=== PATIENT | female | born 2005 | race Caucasian/White ===

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

== ENCOUNTER 2025-01-08 17:43 | Emergency (ER) | payer BC, SELFPAY ==
--- OUTSIDE RECORDS SUMMARY | 2025-01-08 17:46 | XMS_ITS | Clinical Summary ---
Author Organization [facility] Address [address] [place] [id number] Care Team Providers Care Power Transformer Inspector Name Role Phone Lauren Orellana DO Primary Care Provider [phone] Allergies No known active allergies Medications vit 28/iron fum/folic (multivitamin folic acid 1 mg)Indications:Pr egnancy, unspecified gestational age (HC) Take 1 Tablet by mouth once daily. 90 Tablet 3 5 Active ferrous sulfate 325 mg delayed release tabletIndications : care, first in first trimester (HC) Take 1 Tablet (325 mg) by mouth once daily with a meal. 90 Tablet 3 5 Active vit 28/iron fum/folic (multivitamin folic acid 1 mg)Indications:Pr egnancy, unspecified gestational age (HC) Take 1 Tablet by mouth once daily. 90 Tablet 3 4 025 Discontin ued(Reord er (E-cancel not sent)) albuterol HFA (PRO-AIR; VENTOLIN; PROVENTIL) 90 mcg/actuation inhalerIndication s:Chest congestion INHALE 1 TO 2 PUFFS BY MOUTH EVERY 4 HOURS NEEDED FOR SHORTNESS OF BREATH 8.5 g 4 025 Discontin ued(*Med complete/ Regimen complete/ Level of care change) cholecalciferol (Vitamin D3) (Vitamin D-3) 5,000 unit tab tabletIndications : (infant) Take 1 Tablet (5,000 units) by mouth once daily. 90 Tablet 3 5 025 Discontin ued(*Med complete/ Regimen complete/ Level of care change) norethindrone (Contraceptive) 0.35 mg tabletIndications :Encounter for initial prescription of contraceptive pills Take 1 Tablet (0.35 mg) by mouth once daily. 90 Tablet 3 5 025 Discontin ued(*Med complete/ Regimen complete/ Level of care change) Active Problems Problem Noted Date Diagnosed Date #2 12/26/2024 Overview (12/30/2024): Estimated Date of Delivery: 07/24/25 ALICIA based on 5w US Closely spaced : C/S 06/12/24 GBS: 28wk labs: Last Tdap: 03/18/24 Last Flu vaccine: 12/25/24 OB Labs: ABORH Date Value Ref Range Status 12/25/2024 O Rh Positive Final ANTIBODY SCREEN Date Value Ref Range Status 12/25/2024 Negative Negative Final TREPONEMA PALLIDUM Date Value Ref Range Status 12/25/2024 Non-Reactive Non-Reactive Final RUBELLA AB (IGG), IMMUNE STATUS Date Value Ref Range Status 12/25/2024 1.72 Index Final Comment: Index Interpretation ----- <0.90 Not consistent with immunity 0.90-0.99 Equivocal > or = 1.00 Consistent with immunity HEPATITIS B SURFACE ANTIGEN Date Value Ref Range Status 12/25/2024 NON-REACTIVE NON-REACTIVE Final HIV AG/AB, 4TH GEN Date Value Ref Range Status 12/25/2024 NON-REACTIVE NON-REACTIVE Final HEMOGLOBIN Date Value Ref Range Status 12/25/2024 12.3 11.7 - 15.5 g/dL Final CHLAMYDIA PROBE Date Value Ref Range Status 12/25/2024 Negative Final N GONORRHOEAE PROBE Date Value Ref Range Status 12/25/2024 Negative Final No Known Allergies OB History Para Term AB Living 3 1 1 0 1 1 SAB IAB Ectopic Multiple Live Births 1 0 0 0 1 # Outcome Date GA Lbr Jono/2nd Weight Sex Type Anes PTL Lv 3 Current 2 Term 06/12/24 39w5d HERMELINDA 1 SAB SPONTANEOUS FD Past Medical History: . Date Anemia Varicella uncomplicated 2 years of age Past Surgical History: . Laterality Date SECTION 06/12/2024 arrest of decent, baby found OT ESOPHAGOGASTRODUODENOSCOPY 02/21/2022 with biopsies Problems (from 12/25/24 to present) No problems associated with this episode. Nataly Grissom RN ....12/26/2024 10:48 AM History of section 06/25/2024 Atypical chest pain 07/06/2022 Overview (07/06/2022): 2022: Has had echocardiogram, PFT's and cardiology consult. Cardiology said no restrictions from heart standpoint. Vasovagal syncope 07/06/2022 Overview (07/06/2022): Cardiology consult 2022, no restrictions Estimated Date of Delivery Comme nts Yes 07/24/2025 Based on Ultraso und Resolved Problems Problem Noted Date Diagnosed Date Resolved Date 10/22/2023 12/26/2024 Overview (05/30/2024): ALICIA at 06/15/23 by 6w5d [...] present) Problem Noted Resolved 10/22/2023 by Marcella Baker, RN No Marcella Baker RN ....10/22/2023 1:56 PM 01/25/2023 09/21/2023 Overview (01/25/2023): Estimated Date of [...] Encounters Date Type Department Care Team Description 01/08/2025 Nurse Triage [facility] [address], [place] [id number] Lauren Orellana DO Morning Sickness 12/29/2024 Orders Only [facility] [address] [facility] [id number] Lauren Orellana DO Error-please disregard 12/29/2024 Orders Only [facility] [address] [facility] [address] Lauren Orellana DO <No scans attached> 12/25/2024 1:30 PM CDT OB Encounter [facility] [address] [facility] [address] Lauren Orellana DO Care (9 wks 6 days); Immunization/Injectio n 12/25/2024 Travel 12/14/2024 Telephone [facility] [address] [facility] [address] Lauren Orellana DO Follow Up 12/11/2024 Nurse Triage [facility] [address] [place] [address] Lauren Orellana DO Problem (Has some bleeding from vaginal 7 weeks ) 12/09/2024 Telephone [facility] [address] [place] [address] Lauren Orellana DO Appointment 12/09/2024 Travel 12/04/2024 Telephone [facility] [address] [facility] [address] Lauren Orellana DO Questions 12/02/2024 Orders Only [facility] Scanner 1 scan: (1-Ord) [facility], OB TRANSVAGINAL, 12/02/2024 11/28/2024 Orders Only [facility] Scanner 1 scan: (1-Ord) [facility], OB TRANSVAGINAL, 11/28/2024 11/25/2024 Orders Only [facility] Scanner 1 scan: (1-Ord) [facility], CHEMISTRY, 11/25/2024 11/21/2024 Orders Only [facility] Scanner 1 scan: (1-Ord) [facility], MULTIPLE LABS, 11/21/2024 11/21/2024 Orders Only [facility] Scanner 1 scan: (1-Ord) [facility], OB TRANSVAGINAL, 11/21/2024 from Last 3 Months Immunizations Immunization Administration Dates Next Due COVID-19 vaccine (Pfizer-Bio NTech 30mcg/0.3mL) 12YO+ BIVALENT PF, MDV 12/12/2021 COVID-19 vaccine (Pfizer-Bio NTech 30mcg/0.3mL) 12YO+ LIZ-SUCROSE PF, MDV 06/20/2021 COVID-19 vaccine (Pfizer-Bio NTech 30mcg/0.3mL) PF, MDV 11/16/2020,10/26/2020 DTaP 12/13/2007 [id number]-[id number]-UYU (Pediarix) 01/01/2007,05/31/2006,1 2005 DTaP-IPV (Kinrix) 11/14/2011 HIB PRP-OMP (PedvaxHIB) 05/31/2006,01/24/2006 HIB PRP-T (ActHIB,Hiberix) 01/01/2007 HPV 9 (Gardasil 9) 06/20/2021,11/18/2018 Hepatitis A (Peds) 05/31/2010,12/13/2007 INFLUENZA, IIV3 PF (AGE >= 6 MO) 12/25/2024,11/2023 Influenza, High-dose Inactivated 01/01/2007 Influenza, IIV3 (Age [...] example, heat, electricity, water, phone)? 1 04/30/2024 Estimated Date of Delivery Comme nts Yes 07/24/2025 Based on Ultraso und Sex and Gender Information Value Date Recorded Sex Assigned at Not on file Legal Sex Female 8:05 AM HOME MANAGER Gender Identity Not on file Sexual Orientation Not on file Obstetrics History Para Term AB IAB SAB Ectopic Multiple Livin g Live Births 3 1 1 0 1 0 1 0 0 1 1 Date Outcome GA Total Labor Labor/2nd/3rd Weight Sex Type Anes PTL Hermelinda A1 A5 Name Clin SAB SPONTAN EOUS Demise 06/12 Term 39w 5d C-Secti on Living Current Summary Episode Dates Number of Fetuses Estimated Date of Delivery 12/25/2024 - Present (01/08/2025) 07/24/2025 (set by Karina Goodrich MA on 12/25/2024 based on Ultrasound on 11/21/2024) Dating Summary Based On ALICIA GA Diff Ultrasound on 11/21/2024 07/24/2025 Working GA:5w0d Notes Progress Notes - OB Encounte r - 12/25/2024 - GA:9w6d 12/25/2024 - 9w6d - Lauren Orellana DO FIRST OB VISIT HPI: Ervin Duran is a 19 y.o. female at 9w6d with pendleton intrauterine here today for a initial OB exam. She is here with baby. Estimated due date is Estimated Date of Delivery: None noted. based on 5wk ultrasound dating in ER Had primary c/s for arrest of decent 06/12/24. 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 Was prescribed micronor at 6wk visit but says never started. Was in ER 11/21/24 for left sided c/s scar pain. She reported then positive home test few days prior. Missed Sept menses. She had US/labs then. ER provider thought pain from left corpus luteum. ER provider spoke with Dr Lopez and she had follow up scheduled through them. CBC then with Hemoglobin 11.7 HCG quant 1394.40 US showed 'cystic structure seen in fundal endometrium measuring 2.8mm which would correspond to 5wk gestation. No evidence of pole or yoke sac. Indeterminate exam for living gestation, recommend follow up with serial quant HCG and US 11/25/24 hcg = [address] [facility] and that note is reviewed. US 11/28/24 showed intrauterine gestation sac measuring 9.3mm consistent with 5w5d gestation. There was small subchorionic hemorrhage 2.2 x 0.5 x 1.0cm. It was recommended that she follow up with me for OB intake. Of note, Dr Camp did note she is NOT a candidate for TOLAC after c/s due to closely spaced pregnancies. Patient reports today feeling good about . Notes left sided pain comes and goes. Some days not have at all, other days notices it. Had since ER visit above. Lasts 5-10min then resolves. Not worsening. Had spotting around time went to ER, not since. Not taking PNV, not any medications or supplements. 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 HX: never had Pap smear No history of STIs OB History Para Term AB Living 2 1 1 0 1 1 SAB IAB Ectopic Multiple Live Births 1 0 0 0 1 # Outcome Date GA Lbr Jono/2nd Weight Sex Type Anes PTL Lv 2 Term 06/12/24 39w5d HERMELINDA 1 SAB SPONTANEOUS FD Past Medical History[1] No history MRSA or resistant infections Past Surgical History[2] Family History Problem Relation Age of Onset [...] of alcohol Current Outpatient Medications Medication Sig albuterol HFA (PRO-AIR; VENTOLIN; PROVENTIL) 90 mcg/actuation inhaler INHALE 1 TO 2 PUFFS BY MOUTH EVERY 4 HOURS NEEDED FOR SHORTNESS OF BREATH cholecalciferol (Vitamin D3) (Vitamin D-3) 5,000 unit tab tablet Take 1 Tablet (5,000 units) by mouth once daily. norethindrone (Contraceptive) 0.35 mg tablet Take 1 Tablet (0.35 mg) by mouth once daily. vit 28/iron fum/folic (multivitamin folic acid 1 mg) Take 1 Tablet by mouth once daily. No current facility-administered medications for this visit. Medications have been reviewed by me and are current to the best of my knowledge and ability. ALLERGIES Patient has no known allergies. MENTAL HEALTH HISTORY History of psychiatric diagnosis: patient reports thought anxiety at times. Not taken medications for and thinks doing okay currently, says good support S.O. REVIEW OF SYSTEMS Comprehensive ROS complete and negative other than noted in HPI and on OB Questionnaire. PHYSICAL EXAM There were no vitals taken for this visit. General: Pleasant female in no acute distress, alert and appropriate HEENT: Conjunctiva clear, nares patent, mucous memory is moist Neck: No lymphadenopathy or thyromegaly Heart: Regular rate and rhythm Lungs: Clear tissue bilaterally Abdomen: Nontender. deferred Extremities: No edema Skin: No concerning lesions Psych: normal affect ALICIA: by US on 11/21/24, was 5.0 weeks at that time. ASSESSMENT/PLAN 19yo at 9w6d by 5wk US here for initial visit with history short intervals between pregnancies. 1. Discussed orientation,general information,lifestyle,nutrition,exercise,warning signs,resources,lab testing,risk screening. Questions answered. 2. Typical remaining course reviewed. 3. Labor signs/warning signs reviewed. 4. Discussed repeat c/s and will refer for repeat c/s consult after 20wks. 5. Ultrasounds for dating reviewed from [facility]. 6. Reviewed labs done and ordered labs. Start PNV and iron 7. Followup in 4 weeks, sooner if needed ASPIRIN CANDIDATE EVALUATION One or more of [...] previous adverse outcome, > 10 year interval) [1] Past Medical History: . Date Anemia Varicella uncomplicated 2 years of age [2] Past Surgical History: . Laterality Date SECTION 06/12/2024 arrest of decent, baby found OT ESOPHAGOGASTRODUODENOSCOPY 02/21/2022 with biopsies Last Filed Vital Signs Vital Sign Reading Time Taken Comments Blood Pressure 106/63 12/25/2024 1:43 PM CDT Pulse 102 12/25/2024 1:43 PM CDT Temperature 36.4 C (97.6 F) 06/25/2024 10:01 AM CDT Respiratory Rate - - Oxygen Saturation 100% 12/25/2024 1:43 PM CDT Inhaled Oxygen Concentration - - Weight 53.1 kg (117 lb) 12/25/2024 1:43 PM CDT Height 154.9 cm (5' 1) 09/21/2023 8:09 AM CDT Body Mass Index - - Plan of Treatment Upcoming Encounters Date Type Department Care Team (Late st Contact Info) Description 01/14/2025 3:35 PM HOME MANAGER OB Encounter [facility] [address] [place] [address] Lauren Orellana DO [address] [place] [address] 02/17/2025 3:35 PM HOME MANAGER OB Encounter [facility] [address] [place] [address] Lauren Orellana DO [address] [place] [address] 03/09/2025 4:00 PM HOME MANAGER Ancillary Procedure [facility] [address] [place] [address] Health Maintenance Due Date Last Done Comments BMI (ht and wt on same day) for age 18+ 11/14/2023 Hepatitis C screening for ag e 18-79 11/14/2023 10/22/2023, 01/23/2023 Well Child Check for age 3-20 09/20/2024, 06/20/2021, 05/31/2010 Depression screening for age 12+ 07/23/2025 07/23/2024, 09/21/2023, 04/23/2023, Additional history exists Chlamydia for age 16-24 12/25/2025 12/26/19 25, 10/22/2023, 01/24/2023, Additional history exists Tetanus booster 03/18/2034 03/18/2024, 11/18/2018 Hepatitis B series for 19+ Completed 01/01, 05/31/2006, 01/24/2006 Pneumococcal series for age 6-49 Completed 05/31/2010, 01/01/2007, 05/31/2006, Additional history exists HPV series for age 9-45 Completed 06/20/2021, 11/18 Meningococcal series for age 11-21 Completed 2021, 11/18/2018 HIV for age 15-65 Completed 12/25/2024, , 01/23/2023, Additional history exists Influenza Vaccine Completed 12/25/2024, , 11/22/2022, Additional history exists RSV vaccine for adults or (No Doses Required) Completed Procedures Procedure Name Priority Date/Time Associated Diagnosis Comments GC CHLAMYDIA TRACH PROBE Routine 12/25/2024 3:17 PM CDT care, first in first trimester (HC) URINE CULTURE Routine 12/25/2024 3:17 PM CDT care, first in first trimester (HC) UA W/ SEDIMENT EXAM REFLEXED PER CRITERIA Routine 12/25/2024 3:17 PM CDT care, first in first trimester (HC) ABORH TYPE Routine 12/25/2024 3:12 PM CDT care, first in first trimester (HC) ANTIBODY SCREEN Routine 12/25/2024 3:12 PM CDT care, first in first trimester (HC) ANTI HIV 1/2 Routine 12/25/2024 3:12 PM CDT care, first in first trimester (HC) FERRITIN Routine 12/25/2024 3:12 PM CDT care, first in first trimester (HC) TREPONEMA PALLIDUM Routine 12/25/2024 3: 12 PM CDT care, first in first trimester (HC) RUBELLA IMMUNE STATUS Routine 12/25/2024 3:12 PM CDT care, first in first trimester (HC) HEMOGLOBIN Routine 12/25/2024 3:12 PM CDT care, first in first trimester (HC) HBSAG (HBS) Routine 12/25/2024 3:12 PM CDT care, first in first trimester (HC) SCAN-ULTRASOUND REPORT 12/02/2024 12:00 AM CDT SCAN-ULTRASOUND REPORT 11/28/2024 12:00 AM CDT SCAN-LABORATORY REPORT 11/25/2024 12:00 AM CDT SCAN-LABORATORY REPORT 11/21/2024 12:00 AM CDT SCAN-ULTRASOUND REPORT 11/21/2024 12:00 AM CDT ANTI HCV Routine 10/22/2023 2:45 PM CDT Encounter for supervision of normal first in first trimester (HC) from Last 3 Months or Most Recently Relevant to Health Maintenance Results * GC CHLAMYDIA TRACH PROBE (12/25/2024 3:17 PM CDT) CHLAMYDIA PROBE Negative 3:13 AM CDT [facility] N GONORRHOEAE PROBE Negative 12/26/2024 3:13 AM CDT [facility] Other URINE SPECIMEN / Unknown Non-Blood / Unknown 12/25/2024 3:17 PM CDT 12/25/2024 3:23 PM CDT us Lauren Orellana DO MICROBIOLOGY Final [facility]u [facility] [address] [place] [address], [place] * (ABNORMAL) URINE CULTURE (12/25/2024 3:17 PM CDT) CULTURE RESULT(A) 12/30/2024 10:25 AM CDT [facility] CULTURE 10,000-50,000 CFU/mL Enterococcus faecalis 12/30/2024 10:25 AM CDT [facility] Comment: Levofloxacin susceptibilities for Enterococcus available upon request for urine isolates ONLY. Levofloxacin is not routinely recommended for Enterococcus and can ONLY be used for infections isolated in the urinary tract. In the setting of polymicrobial urine cultures, Enterococcus often represents colonization and may not necessitate treatment. CULTURE 10,000-50,000 CFU/mL Multiple organisms probable contaminants 12/30/2024 10:25 AM CDT [facility] Urine URINE SPECIMEN / Unknown Non-Blood / Unknown 12/25/2024 3:17 PM CDT 12/25/2024 3:23 PM CDT Narrative Organism Antibiotic Method Susceptibility Enterococcus faecalis AMPICILLIN <=2: S Enterococcus faecalis NITROFURANTOIN <=16: S Lauren Orellana DO MICROBIOLOGY Final Resu lt [facility] [address] [place] [address], [place] * UA W/ SEDIMENT EXAM REFLEXED PER CRITERIA (12/25/2024 3:17 PM CDT) COLOR Yellow Yellow Color 12/25/2024 11:00 PM CDT [facility] CLARITY Clear Clear Clarity 12/25/2024 11:00 PM CDT [facility] SPECIFIC GRAVITY,URINE 1.025 1.010, 1.015, 1.020, 1.025 12/25/2024 11:00 PM CDT [facility] PH,URINE 6.5 6.0, 7.0, 8.0, 5.5, 6.5, 7.5, 8.5 12/25/2024 11:00 PM CDT [facility] UROBILINOGEN, QUALITATIVE Normal Normal EU/dl 12/25/2024 11:00 PM CDT [facility] PROTEIN, URINE Negative Negative mg/dL 12/25/2024 11:00 PM CDT [facility] GLUCOSE, URINE Negative Negative mg/dL 12/25/2024 11:00 PM CDT [facility] KETONES,URINE Negative Negative mg/dL 12/25/2024 11:00 PM CDT [facility] BILIRUBIN,URI NE Negative Negative 12/25/2024 11:00 PM CDT [facility] OCCULT BLOOD,URINE Negative Negative 12/25/2024 11:00 PM CDT [facility] NITRITE Negative Negative 12/25/2024 11:00 PM CDT [facility] LEUKOCYTE ESTERASE Negative Negative 12/25/2024 11:00 PM CDT [facility] Urine URINE SPECIMEN / Unknown Non-Blood / Unknown 12/25/2024 3:17 PM CDT 12/25/2024 3:23 PM CDT Lauren Orellana DO URINE Final Resu lt Performing Organization Address City/[facility]/ZIP Co de Phone Number [facility] [address] [place] [address], * TREPONEMA PALLIDUM (12/25/2024 3:12 PM CDT) Pathologist [facility] TREPONEMA PALLIDUM Non-Reacti ve Non-Reacti ve 12/25/2024 10:49 PM CDT [facility] Blood BLOOD SPECIMEN / Unknown [facility] / Unknown 12/25/2024 3:12 PM CDT 12/25/2024 3:14 PM CDT Lauren Orellana DO SEND OUTS Final Resu lt [facility] [address] [place] [address], * RUBELLA IMMUNE STATUS (12/25/2024 3:12 PM CDT) RUBELLA AB (IGG), IMMUNE STATUS 1.72 Index 12/26/2024 10:12 AM CDT [facility] Comment: Index Interpretation ----- <0.90 Not consistent with immunity 0.90-0.99 Equivocal > or = 1.00 Consistent with immunity The presence of rubella IgG antibody suggests immunization or past or current infection with rubella virus. Blood BLOOD SPECIMEN / Unknown [facility] / Unknown 12/25/2024 3:12 PM CDT 12/25/2024 3:14 PM [facility]T [facility] SEND OUTS Final Resu lt [facility] [address] [address], [place] [phone] * ABORH TYPE (12/25/2024 3:12 PM CDT) Pathologist [facility] ABORH O Rh Positive 12/25/2024 10:56 PM CDT [facility] Blood BLOOD SPECIMEN / Unknown [facility] / Unknown 12/25/2024 3:12 PM CDT 12/25/2024 3:14 PM CDT [facility] BLOOD B[facility] Final Resu lt [facility] [address] [place] [id number], [place] [phone] * HBSAG (HBS) (12/25/2024 3:12 PM CDT) Pathologist [facility] HEPATITIS B SURFACE ANTIGEN NON-REACT LUIS ANGEL NON-REACT LUIS ANGEL 12/26/2024 2:05 PM CDT [facility] Comment: For additional information, please refer to http://education.S[employer]Pal.[employer]/faq/GIN104 (This link is being provided for informational/ educational purposes only.) Blood BLOOD SPECIMEN / Unknown [facility] / Unknown 12/25/2024 3:12 PM CDT 12/25/2024 3:14 PM CDT [facility] Sheryl Orellana SEND OUTS Final Resu lt [facility] [address] [place] [address], [place] [phone] * ANTIBODY SCREEN (12/25/2024 3:12 PM CDT) [facility] ANTIBODY SCREEN Negative Negative 12/25/2024 11:14 PM CDT [facility] SPECIMEN EXPIRATION DATE/TIME 12/28/24 23:59 12/25/2024 11:14 PM CDT [facility] Blood BLOOD SPECIMEN / Unknown [facility] / Unknown 12/25/2024 3:12 PM CDT 12/25/2024 3:14 PM CDT [facility] Sheryl Orellana BLOOD BANK Final Resu lt [facility] [address] [place] [address], [place] [phone] * HEMOGLOBIN (12/25/2024 3:12 PM CDT) [facility] HEMOGLOBIN 12.3 11.7 - 15.5 g/dL 12/26/2024 4:29 AM CDT [facility] MCV 90.6 80.0 - 100.0 fL 12/26/2024 4:29 AM CDT [facility] Blood BLOOD SPECIMEN / Unknown [facility] / Unknown 12/25/2024 3:12 PM CDT 12/25/2024 3:14 PM CDT [facility] HEMATOLOGY Final Resu lt [facility] [address] [place] [address], [place] [phone] * ANTI HIV 1/2 (12/25/2024 3:12 PM CDT) HIV FINAL INTERPRETATOIN HIV NEGATIVE 12/26/2024 2:06 PM CDT [facility] Comment: HIV-1 antigen and HIV-1/HIV-2 antibodies were not detected. There is no laboratory evidence of HIV infection. HIV AG/AB, 4TH GEN NON-REACTIV E NON-REAC TIVE 12/26/2024 2:06 PM CDT [facility] Blood BLOOD SPECIMEN / Unknown [facility] / Unknown 12/25/2024 3:12 PM CDT 12/25/2024 3:14 PM CDT Lauren Sheryl Orellana DO SEND OUTS Final Resu lt Performing Organization Address [facility]/ZIP Co de Phone Number [facility] [address] [place] [address], [place] [phone] * (ABNORMAL) FERRITIN (12/25/2024 3:12 PM CDT) FERRITIN 5(L) 16 - 154 ng/mL 12/26/2024 6:44 AM CDT [facility] Blood BLOOD SPECIMEN / Unknown [facility] / Unknown 12/25/2024 3:12 PM CDT 12/25/2024 3:14 PM CDT [employer] [facility] CHEMISTRY Final Resu lt Performing Organization Address [facility]/ZIP Co de Phone Number [facility] [address] [place] [address], [place] [phone] * SCAN-ULTRASOUND REPORT (12/02/2024 12:00 AM CDT) Only the most recent of3 resultswithin the time period is included. Anatomical Region Laterality Modality Other us Scanner OTHER Final Result * SCAN-LABORATORY REPORT (11/25/2024 12:00 AM CDT) Only the most recent of2 resultswithin the time period is included. us Scanner OTHER Final Result * ANTI HCV (10/22/2023 2:45 PM CDT) HEPATITIS C ANTIBODY Non-Reacti ve Non-React luis angel 10/23/2023 1:04 AM CDT [facility] Comment:Please note, per www .CDC.gov: [...] Orellana DO SEND OUTS Final Resu lt [facility] [address] [place] [address], [place] from Last 3 Months or Most Recently Relevant to Health Maintenance Insurance [id number] [facility] [place] [id number] [employer] Care Teams Power Transformer Inspector Relationship Specialty Start Date End Date Lauren Orellana DO [address] [place] [address] PCP - General Family Practice 12/12/21
[2025-01-08 18:15] VITALS: BP 106/74; PULSE 87; RESP 16; TEMP 36.5; O2SAT 99; BMI 24.0
[2025-01-08 18:34] LABS: Hematocrit* 35.7 % (33.0-51.0); Hemoglobin* 12.2 gm/dL (12.0-16.0); Immature Granulocytes Abs Auto 0.01 K/uL (0.00-0.30); Immature Granulocytes Pct Auto 0.1 %; Lymphocytes Absolute Auto 2.80 K/uL (0.90-2.90); Mean Corpuscular HGB Conc 34 gm/dL (32-36); Mean Corpuscular Hemoglobin 30 pg (26-34); Mean Corpuscular Volume 89 fL (80-100); RDW Coefficient of Variation % 13.0 % (11.5-15.5); Red Blood Count* 4.01 m/uL (4.00-5.20); White Blood Count* 9.07 K/uL (4.50-11.00)
[2025-01-08 18:42] LABS: Slide Review Reflex No
[2025-01-08 18:47] LABS: Chloride* 104 mmol/L (96-114); Potassium* 3.5 mmol/L (3.6-5.1); Sodium* 135 mmol/L (135-149)
[2025-01-08 18:50] LABS: Anion Gap 9 mEq/L (7-15); Blood Urea Nitrogen* 7 mg/dL (5-24); Carbon Dioxide* 22 mmol/L (20-32); Creatinine* 0.4 mg/dL (0.6-1.2); Est. Creatinine Clearance* 170.70; Estimated Glomerular Filt Rate 146 ml/min
[2025-01-08 18:51] LABS: Calcium* 9.3 mg/dL (8.7-10.8); Glucose* 90 mg/dL (60-115)
[2025-01-08 19:06] LABS: Albumin* 4.2 g/dL (3.3-5.0)
[2025-01-08 19:09] LABS: Alanine Aminotransferase* 21 U/L (4-35); Alkaline Phosphatase* 77 U/L (40-150); Aspartate Amino Transferase* 20 U/L (12-35); Bilirubin Direct* 0.2 mg/dL (0.0-0.5); Bilirubin Total* 0.3 mg/dL (0.1-1.5); Total Protein* 7.2 g/dL (6.0-8.3)
--- NOTE | 2025-01-08 19:18 | ED_ITS ---
HPI - Nausea/Vomiting/Diarrhea General Date Seen: 01/08/25 Chief complaint: Nausea/Vomiting Stated complaint: needs fluids, 12 wks preg Time Seen by Provider: 01/08/25 18:19 Source: patient Mode of arrival: ambulatory Limitations: no limitations History of Present Illness HPI Narrative: Patient is a 19-year-old currently 12 weeks presenting to emergency department for worsening nausea and vomiting over the past week. States she has been able to eat or drink anything and every time she tries she vomited back up. She spoke to the [facility] and she was recommended to come to the emergency department for evaluation. States with the previous she had some morning sickness but has never had nausea this bad before. She is uncertain if she has lost any weight. Has not been taking any and nausea medication. Does states she has some mild lower abdominal pain that started after the episodes of vomiting. Pain is better when she is not vomiting. Does states she feels dehydrated. [employer] that she had a fever earlier today but not currently. Denies chest pain or shortness of breath. Denies vision changes, weakness, numbness. She is feeling fatigued. No other concerns noted at this time. Related Data Previous Rx's ?Medication ?Instructions ?Recorded acetaminophen 500 mg tablet 1,000 mg (2 x 500 mg) PO Q 6H PRN 06/15/24 Pain #30 tabs Allergies Allergy/AdvReac Type Severity Reaction Status Date / Time No Known Drug Allergies Allergy Verified 12/17/24 13:52 Review of Systems Status of ROS: Reports: 10 or more systems reviewed and unremarkable except as noted in History and below [facility] Medical History Anemia ?D64.9 - Anemia, unspecified (ICD-10) hemorrhage ?O72.1 - Other immediate hemorrhage (ICD-10) Atypical chest pain ?R07.89 - Other chest pain (ICD-10) Syncope ?R55 - Syncope and collapse (ICD-10) Varicella ?B01.9 - Varicella without complication (ICD-10) Surgical History Status post primary low transverse section (06/12/24) ?Z98.891 - History of uterine scar from previous surgery (ICD-10) History of esophagogastroduodenoscopy (EGD) ?Z98.890 - Other specified postprocedural states (ICD-10) Social History What is your current living situation?: I presently have a place to live Problems where you live: no known problems In the past 12 months, utilities in danger of being shut off: no In past 12 months, lack of transportation kept you from medical appts, meetings, work, or getting things needed for daily living: no In the past 12 mos, have been you worried that your food would run out before you had money to buy more?: never true In the past 12 mos, the food you bought just didn't last and you didn't have money to buy more?: never true Smoking Status: Never smoker Do you use any of these nicotine containing products: None Second hand tobacco smoke exposure: No How often do you have a drink containing alcohol: never How often do you have six or more drinks on one occasion: Never AUDIT-C Alcohol total score: 0 Non-prescribed substance use: denies use How often does anyone, including family, friends and others, physically hurt you : never How often does anyone, including family, friends and others, insult or talk down to you: never How often does anyone, including family, friends and others, threaten you with harm: never How often does anyone, including family, friends and others, scream or curse at you: never service: No Exam Narrative: Exam Narrative: Const: Well-nourished, Well-developed, in mild distress Eyes: PERRL, no conjunctival injection, and symmetrical lids HENT: Atraumatic external nose and ears. Moist mucous membranes. Neck: Symmetric, trachea midline, No thyromegaly. CVS: RRR, No murmurs or gallops. Peripheral pulses 2+ and equal in all extremities RESP: Unlabored respiratory effort. Clear to auscultation bilaterally. GI: Nontender, gravid abdomen, No rebound or guarding. MSK:Extremities w/o deformity, Normal Active ROM Skin: Warm, Dry. No rashes or lesions. Neuro: Normal Muscle tone, No focal neurological deficits. Psych: Awake, Alert, & Oriented x3. Appropriate mood and affect. Const: Vital Signs, click to edit/add: Vital Signs - 24 hr 01/08/25 18:15 01/08/25 19:49 Temperature 97.7 F Pulse Rate [Pulse Oximeter] 87 77 Respiratory Rate 16 16 Blood Pressure [Ri t Upper Arm] 106/74 100/56 L Pulse Oximetry 99 99 Oxygen Delivery Me thod Room Air Room Air Course Vital Signs Vital signs: Initial Vital Signs Temperature 97.7 F 01/08/25 18:15 Temperature Source Temporal Artery Scan 01/08/25 18:15 Pulse Rate 87 01/08/25 18:15 Respiratory Rate 16 01/08/25 18:15 Blood Pressure 106/74 01/08/25 18:15 Blood Pressure Mean 84 01/08/25 18:15 Blood Pressure Position Sitting 01/08/25 18:15 Pulse Oximetry 99 01/08/25 18:15 Oxygen Delivery Method Room Air 01/08/25 18:15 Vital Signs Temperature 97.7 F 01/08/25 18:15 Pulse Rate 87 01/08/25 18:15 Respiratory Rate 16 01/08/25 18:15 Blood Pressure 106/74 01/08/25 18:15 Pulse Oximetry 99 01/08/25 18:15 Oxygen Delivery Method Room Air 01/08/25 18:15 Temperature 97.7 F 01/08/25 18:15 Pulse Rate 77 01/08/25 19:49 Respiratory Rate 16 01/08/25 19:49 Blood Pressure 100/56 L 01/08/25 19:49 Pulse Oximetry 99 01/08/25 19:49 Oxygen Delivery Method Room Air 01/08/25 19:49 Medications Administered Medications: Discontinued Medications Generic Name Dose Route Start Last Admin Trade Name Freq PRN Reason Stop Dose Admin Sodium Chloride 1,000 mls @ 1,000 mls/hr 01/08/25 19:15 01/08/25 19:21 0.9 % Sodium Chloride 1000 Ml IV 01/08/25 20:14 Infused .Q1H SPEEDY Infusion Ondansetron HCl 4 mg 01/08/25 19:20 01/08/25 19:36 Ondansetron 2 Mg/Ml Inj IVP 01/08/25 19:21 4 mg ONCE ONE Administration MDM - Nausea/Vomiting/Diarrhea MDM Narrative Medical decision making narrative: Patient is an 18-year-old female who is currently presenting for nausea vomiting. Based on the history this seems likely to be hyperemesis gravidarum. A L fluids given for her dehydration and Zofran given for nausea. Will check a CBC, CMP, urinalysis. Will check a current weight to make sure she has not lost too much weight over this period . Based on current weight and most recent weight on file she has lost about 5% of her body weight since her most recent OB appointment. Her labs are reassuring. She does have 3+ ketones. She is feeling much better after the Zofran and feels like she can go home. Will prescribe her Zofran via [facility]. I informed her to have close follow-up with her OB provider. She is agreeable to this plan. Lab Data Labs: Lab Results 01/08/25 01/08/25 Range/Units 18:20 19:13 WBC 9.07 (4.50-11.00) K/uL RBC 4.01 (4.00-5.20) m/uL Hgb 12.2 (12.0-16.0) gm/dL Hct 35.7 (33.0-51.0) % MCV 89 (80-100) fL MCH 30 (26-34) pg MCHC 34 (32-36) gm/dL RDW Coeff of Kasi 13.0 (11.5-15.5) % Plt Count 274 (140-440) K/uL Neut % (Auto) 62.4 (42.0-72.0) % Lymph % (Auto) 30.9 (20-44) % Ritchie % (Auto) 6.2 (0.0-11.0) % Eos % (Auto) 0.3 (0.0-7.0) % Baso % (Auto) 0.1 (0.0-3.0) % Neut # (Auto) 5.66 (1.7-7.0) K/uL Lymph # (Auto) 2.80 (0.90-2.90) K/uL Ritchie # (Auto) 0.60 (0.00-0.90) K/UL Eos # (Auto) 0.03 (0.00-0.50) K/uL Baso # (Auto) 0.01 (0.00-0.30) K/uL Abs Immat Gran (auto) 0.01 (0.00-0.30) K/uL Imm/Tot Granulo (auto) 0.1 % Sodium 135 (135-149) mmol/L Potassium 3.5 L (3.6-5.1) mmol/L Chloride 104 (96-114) mmol/L Carbon Dioxide 22 (20-32) mmol/L Anion Gap 9 (7-15) mEq/L BUN 7 (5-24) mg/dL Creatinine 0.4 L (0.6-1.2) mg/dL Estimated Creat Clear 170.70 Estimated GFR 146 ml/min Glucose 90 (60-115) mg/dL Calcium 9.3 (8.7-10.8) mg/dL Total Bilirubin 0.3 (0.1-1.5) mg/dL Direct Bilirubin 0.2 (0.0-0.5) mg/dL AST 20 (12-35) U/L ALT 21 (4-35) U/L Alkaline Phosphatase 77 (40-150) U/L Total Protein 7.2 (6.0-8.3) g/dL Albumin 4.2 (3.3-5.0) g/dL Urine Color Yellow (Yellow) Urine Appearance Clear (Clear) Urine pH 6.0 (5.0-8.5) Ur Specific [place] 1.025 (1.000-1.030) Urine Protein Negative (Negative) Urine Glucose (UA) Negative (Negative) Urine Ketones 3+ A (Negative) Urine Blood Negative (Negative) Urine Nitrite Negative (Negative) Urine Bilirubin Negative (Negative) Urine Urobilinogen 0.2 (0.2-1.0) Ur Leukocyte Esterase Negative (Negative) Urine RBC 0-2 (0-2) Urine WBC 0-2 (0-5) Ur Squamous Epith Cells Few (None-Few) Urine Bacteria None (None) Discharge Plan Discharge Clinical Impression: Hyperemesis gravidarum Patient Disposition: Home, Self-Care Condition: Improved Instructions: Hyperemesis Gravidarum (ED) Additional Instructions: Use the Zofran as needed for nausea. It is important you stay hydrated. If you continue to unable to eat or drink even while using the Zofran return for re- evaluation. It is important you call your OB provider in the morning to inform them your in the emergency department for hyperemesis gravidarum and ask if they want you to have a more urgent follow-up visit. Prescriptions: No Action acetaminophen 500 mg Tablet 1,000 mg PO Q6H PRN (Reason: Pain) Qty: 30 0RF Follow Up/Referrals: Lauren Orellana DO [Primary Care Provider, Family Practice] Stand Alone Forms: MyHealth Info Instructions
[2025-01-08 19:20] LABS: Appearance Urine Clear (Clear)
[2025-01-08] MEDS: ONDANSETRON 2 MG/ML inj 4 MG IVP (19:36)
[2025-01-08 19:49] VITALS: BP 100/56; PULSE 77; RESP 16; O2SAT 99
== END 2025-01-08 20:27 | disposition home or self-care (01) ==
PROVIDERS: Emergency Provider Student in an Organized Health Care Education/Training Program; PCP Family Medicine
DX: O21.0 Mild hyperemesis gravidarum (principal); Z3A.12 12 weeks gestation of pregnancy
CPT/HCPCS: 36415; 80048; 80076; 81001; 85025; 96361; 96374; 99284; J2405; J7030

== ENCOUNTER 2025-01-19 06:53 | Emergency (ER) | payer BC, SELFPAY ==
--- OUTSIDE RECORDS SUMMARY | 2025-01-19 06:56 | XMS_ITS | Clinical Summary ---
Author Organization [facility] Address [address] [place] [address] Care Team Providers Care Education Counselor Name Role Phone Lauren Orellana DO Primary Care Provider [phone] Allergies No known active allergies Medications vit [...] Department Care Team Description 01/08/2025 [facility] [address], [place] [id number] Lauren Orellana DO Morning Sickness 12/29/2024 Orders Only [facility] [address] [facility] [address] Lauren Orellana DO Error-please disregard 12/29/2024 Orders Only [facility] [address] [facility] [address] Lauren Orellana DO <No scans attached> 12/25/2024 1:30 PM CDT OB [facility] [address] [facility] [address] Lauren Orellana DO Care (9 wks 6 days); Immunization/Injectio n 12/25/2024 Travel 12/14/2024 Telephone [facility] [address] [facility] [address] Lauren Orellana DO Follow Up 12/11/2024 Nurse Triage [facility] [address] [place] [address] Lauren Orellana DO Problem (Has some bleeding from vaginal 7 weeks ) 12/09/2024 Telephone [facility] [address] [place] [address] Lauren Orellana DO Appointment 12/09/2024 Travel 12/04/2024 Telephone [facility] [address] [facility] [address] Lauren Orellana DO Questions 12/02/2024 Orders Only [facility] Scanner 1 scan: (1-Ord) [facility], OB TRANSVAGINAL, 12/02/2024 11/28/2024 Orders Only [facility] Scanner 1 scan: (1-Ord) [facility], OB TRANSVAGINAL, 11/28/2024 11/25/2024 Orders Only [facility] Scanner 1 scan: (1-Ord) [facility], CHEMISTRY, 11/25/2024 11/21/2024 Orders Only [facility] Scanner 1 scan: (1-Ord) [facility], MULTIPLE LABS, 11/21/2024 11/21/2024 Orders Only [facility] Scanner 1 scan: (1-Ord) [place], OB TRANSVAGINAL, 11/21/2024 from Last 3 Months Immunizations Immunization Administration Dates Next Due COVID-19 vaccine (Pfizer-Bio NTech 30mcg/0.3mL) 12YO+ BIVALENT PF, MDV 12/12/2021 COVID-19 vaccine (Pfizer-Bio NTech 30mcg/0.3mL) 12YO+ LIZ-SUCROSE PF, MDV 06/20/2021 COVID-19 vaccine (Pfizer-Bio NTech 30mcg/0.3mL) PF, MDV 11/16/2020,10/26/2020 DTaP 12/13/2007 [id number] (Pediarix) 01/01/2007,05/31/2006,1 2005 DTaP-IPV (Kinrix) 11/14/2011 HIB [...] on file Legal 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 5. Ultrasounds for dating reviewed from [facility]. 6. Reviewed labs done and ordered [...] Care Team (Late st Contact Info) Description 01/20/2025 1:55 PM HABILITATION TRAINING SPECIALIST OB [facility] [address] [place] [address] Lauren Orellana DO [address] [place] [address] 02/17/2025 3:35 PM HABILITATION TRAINING SPECIALIST OB Encounter [facility] [address] [place] [address] Lauren Orellana DO [address] [place] [address] 03/09/2025 4:00 PM HABILITATION TRAINING SPECIALIST Ancillary Procedure [facility] [address] [place] [address] Health Maintenance Due Date Last Done Comments [...] CDT) CHLAMYDIA PROBE Negative 3:13 AM CDT [facility] N GONORRHOEAE PROBE Negative 12/26/2024 3:13 AM CDT [facility] Other URINE SPECIMEN / Unknown Non-Blood / Unknown 12/25/2024 3:17 PM CDT 12/25/2024 3:23 PM CDT us Lauren Orellana DO MICROBIOLOGY [facility] [address] [place] [address], [place] * (ABNORMAL) URINE CULTURE (12/25/2024 3:17 PM CDT) CULTURE RESULT(A) 12/30/2024 10:25 AM CDT [facility] CULTURE 10,000-50,000 CFU/mL Enterococcus faecalis 12/30/2024 10:25 AM CDT [facility] Comment: Levofloxacin susceptibilities for Enterococcus available upon request for urine isolates ONLY. Levofloxacin is not routinely recommended for Enterococcus and can ONLY be used for infections isolated in the urinary tract. In the setting of polymicrobial urine cultures, Enterococcus often represents colonization and may not necessitate treatment. CULTURE 10,000-50,000 CFU/mL Multiple organisms probable contaminants 12/30/2024 10:25 AM CDT [facility] Urine URINE SPECIMEN / Unknown Non-Blood / Unknown 12/25/2024 3:17 PM CDT 12/25/2024 3:23 PM CDT Narrative Organism Antibiotic Method Susceptibility Enterococcus faecalis AMPICILLIN <=2: S Enterococcus faecalis NITROFURANTOIN <=16: S Lauren Orellana DO MICROBIOLOGY Final Resu lt [facility] [address] [place] [address], [place] * UA W/ SEDIMENT EXAM REFLEXED PER CRITERIA (12/25/2024 3:17 PM CDT) COLOR Yellow Yellow Color 12/25/2024 11:00 PM CDT [facility] CLARITY Clear Clear Clarity 12/25/2024 11:00 PM CDT [facility] SPECIFIC GRAVITY,URINE 1.025 1.010, 1.015, 1.020, 1.025 12/25/2024 11:00 PM CDT [facility] PH,URINE 6.5 6.0, 7.0, 8.0, 5.5, 6.5, 7.5, 8.5 12/25/2024 11:00 PM CDT [facility] UROBILINOGEN, QUALITATIVE Normal Normal EU/dl 12/25/2024 11:00 PM CDT [facility] PROTEIN, URINE Negative Negative mg/dL 12/25/2024 11:00 PM CDT [facility] GLUCOSE, URINE Negative Negative mg/dL 12/25/2024 11:00 PM CDT [facility] KETONES,URINE Negative Negative mg/dL 12/25/2024 11:00 PM CDT [facility] BILIRUBIN,URI NE Negative Negative 12/25/2024 11:00 PM CDT [facility] OCCULT BLOOD,URINE Negative Negative 12/25/2024 11:00 PM CDT [facility] NITRITE Negative Negative 12/25/2024 11:00 PM CDT [facility] LEUKOCYTE ESTERASE Negative Negative 12/25/2024 11:00 PM CDT [facility] Urine URINE SPECIMEN / Unknown Non-Blood / Unknown 12/25/2024 3:17 PM CDT 12/25/2024 3:23 PM CDT Lauren Orellana DO URINE Final Resu lt Performing Organization Address City/[facility]/ZIP Co de Phone Number [facility] [address] [place] [address], * TREPONEMA PALLIDUM (12/25/2024 3:12 PM CDT) Pathologist [facility] TREPONEMA PALLIDUM Non-Reacti ve Non-Reacti ve 12/25/2024 10:49 PM CDT [facility] Blood BLOOD SPECIMEN / Unknown [facility] / Unknown 12/25/2024 3:12 PM CDT 12/25/2024 3:14 PM CDT Lauren Orellana DO SEND OUTS Final Resu lt [facility] [address] [place] [address], * RUBELLA IMMUNE STATUS (12/25/2024 3:12 PM CDT) RUBELLA AB (IGG), IMMUNE STATUS 1.72 Index 12/26/2024 10:12 AM CDT [facility] [employer] [facility] Comment: Index Interpretation ----- <0.90 Not consistent with immunity 0.90-0.99 Equivocal > or = 1.00 Consistent with immunity The presence of rubella IgG antibody suggests immunization or past or current infection with rubella virus. Blood BLOOD SPECIMEN / Unknown [facility] / Unknown 12/25/2024 3:12 PM CDT 12/25/2024 3:14 PM [facility]T [facility] SEND OUTS Final Resu lt [employer] [address] [address], [place] [phone] * ABORH TYPE (12/25/2024 3:12 PM CDT) Pathologist [facility] ABORH O Rh Positive 12/25/2024 10:56 PM CDT [facility] Blood BLOOD SPECIMEN / Unknown [facility] / Unknown 12/25/2024 3:12 PM CDT 12/25/2024 3:14 PM CDT [facility] BLOOD BANK Final Resu lt [facility] [address] [place] [address], [place] [phone] * HBSAG (HBS) (12/25/2024 3:12 PM CDT) Pathologist [facility] HEPATITIS B SURFACE ANTIGEN NON-REACT LUIS ANGEL NON-REACT LUIS ANGEL 12/26/2024 2:05 PM CDT [employer] Comment: For additional information, please refer to http://education.Investview.Kiyon/faq/NWQ722 (This link is being provided for informational/ educational purposes only.) Blood BLOOD SPECIMEN / Unknown [facility] / Unknown 12/25/2024 3:12 PM CDT 12/25/2024 3:14 PM CDT [facility] Sheryl Orellana SEND OUTS Final Resu lt [facility] [address] [place] [address], [place] [phone] * ANTIBODY SCREEN (12/25/2024 3:12 PM CDT) [facility] ANTIBODY SCREEN Negative Negative 12/25/2024 11:14 PM CDT [facility] SPECIMEN EXPIRATION DATE/TIME 12/28/24 23:59 12/25/2024 11:14 PM CDT [facility] Blood BLOOD SPECIMEN / Unknown [facility] / Unknown 12/25/2024 3:12 PM CDT 12/25/2024 3:14 PM CDT [facility] Sheryl Orellana BLOOD BANK Final Resu lt [facility] B[facility] [address] [place] [address], [place] [phone] * HEMOGLOBIN (12/25/2024 3:12 PM CDT) [facility] HEMOGLOBIN 12.3 11.7 - 15.5 g/dL 12/26/2024 4:29 AM CDT [facility] MCV 90.6 80.0 - 100.0 fL 12/26/2024 4:29 AM CDT [facility] Blood BLOOD SPECIMEN / Unknown [facility] / Unknown 12/25/2024 3:12 PM CDT 12/25/2024 3:14 PM CDT [facility] HEMATOLOGY Final Resu lt [facility] [address] [place] [address], [place] [phone] * ANTI HIV 1/2 (12/25/2024 3:12 PM [...] OUTS Final Resu lt Performing Organization Address [facility]/ZIP Co de Phone Number [facility] [address] [place] [address], [place] [phone] * (ABNORMAL) FERRITIN (12/25/2024 3:12 PM CDT) FERRITIN 5(L) 16 - 154 ng/mL 12/26/2024 6:44 AM CDT [facility] Blood BLOOD SPECIMEN / Unknown [facility] / Unknown 12/25/2024 3:12 PM CDT 12/25/2024 3:14 PM CDT [employer] CAUSEY CHEMISTRY Final Resu lt Performing Organization Address [facility]/ZIP Co de Phone Number [employer] [facility] [address] [place] [address], [place] [phone] * SCAN-ULTRASOUND REPORT (12/02/2024 12:00 AM CDT) [...] 1:04 AM CDT [facility] Comment:Please note, per www .CDC.gov: [...] Orellana DO SEND OUTS Final Resu lt [facility] [address] [place] [address], [place] from Last 3 Months or Most Recently Relevant to Health Maintenance Insurance [id number] [facility] [place] [id number] [facility] MEDICAID Care Teams Education Counselor Relationship Specialty Start Date End Date Lauren Orellana DO [address] [place] [address] PCP - General Family Practice 12/12/21
[2025-01-19 07:10] VITALS: BP 106/73; PULSE 100; RESP 20; TEMP 36.8; O2SAT 99; BMI 21.5
--- NOTE | 2025-01-19 07:39 | CRLHL7_ITS ---
For Patients: As a result of the Century Cures Act, medical imaging exams and procedure reports are released immediately into your electronic medical record. You may view this report before your referring provider. If you have questions, please contact your health care provider. Indication: Bleeding Technique: Sonography of the gravid uterus was performed. The study was performed transabdominally. Grayscale imaging was provided. M-mode Doppler was performed to quantify heart rate. Comparison: December 02, 2024 Findings: There is a single living intrauterine . Based on a crown-rump length measurement of 7.4 centimeters, the mean gestational age is 13 weeks and 4 days. Estimated dated delivery by current ultrasound is 07/23/2025. This is concordant with prior ultrasound measurements. heart rate is 163 beats per minute which is normal. Gestational sac size is 6.3 centimeters. The margins appear normal. The right ovary was not visualized. The left ovary appears normal measuring 3.2 x 1.7 x 2.2 centimeters. No evidence for hemorrhage at or near the placenta. No visible cause for abnormal bleeding Impression: 1. Single live intrauterine gestation at 13 weeks and 4 days. The age is concordant with the age predicted by prior ultrasound scan. 2. heart rate is 163 beats per minute which is normal. 3. There is no visible cause for abnormal bleeding 4. Anatomy was performed only to measure the age. Formal anatomic survey is generally recommended at near 20 weeks Dictated by Keyon Joseph MD @ 01/19/2025 8:29:43 AM (Electronically Signed)
--- NOTE | 2025-01-19 07:43 | ED_ITS ---
HPI - General Adult General Chief complaint: Abdominal Pain Stated complaint: 13 weeks , cramping Time Seen by Provider: 01/19/25 07:32 Source: patient Mode of arrival: ambulatory Limitations: no limitations History of Present Illness HPI narrative: 19-year-old female presents to the emergency department with pelvic cramping since last night. No fever, injury or trauma. Is 13 weeks , has had ultrasound to confirm dates. Blood type known to be O-positive. Vaginal Bleeding started this morning at about 6:00 a.m.. Is having some quarter-sized clots. Has had a previous known subchorionic hemorrhage in this , last ultrasound was about 6-7 weeks ago. Reports that she had increased vaginal discharge yesterday but was not bloody, just mucousy fluid. Had some left flank area pain last week, has resolved. Took some Tylenol for the cramping this morning, is helping somewhat. No severe dizziness, lightheadedness or palpitations. History of prior only 7 months ago. No vomiting, no upper GI symptoms. No peripheral edema or right upper quadrant pain. Past medical history notable for in June, repeat 4 months later. No known drug allergies. No long-term medications. ROS notable for the cramping and bleeding as described above, otherwise denies times 12 systems. Related Data Previous Rx's ?Medication ?Instructions ?Recorded acetaminophen 500 mg tablet 1,000 mg (2 x 500 mg) PO Q 6H PRN 06/15/24 Pain #30 tabs Allergies Allergy/AdvReac Type Severity Reaction Status Date / Time No Known Drug Allergies Allergy Verified 12/17/24 13:52 [facility] [place] Medical History Anemia ?D64.9 - Anemia, unspecified (ICD-10) hemorrhage ?O72.1 - Other immediate hemorrhage (ICD-10) Atypical chest pain ?R07.89 - Other chest pain (ICD-10) Syncope ?R55 - Syncope and collapse (ICD-10) Varicella ?B01.9 - Varicella without complication (ICD-10) Surgical History Status post primary low transverse section (06/12/24) ?Z98.891 - History of uterine scar from previous surgery (ICD-10) History of esophagogastroduodenoscopy (EGD) ?Z98.890 - Other specified postprocedural states (ICD-10) Social History What is your current living situation?: I presently have a place to live Problems where you live: no known problems In the past 12 months, utilities in danger of being shut off: no In past 12 months, lack of transportation kept you from medical appts, meetings, work, or getting things needed for daily living: no In the past 12 mos, have been you worried that your food would run out before you had money to buy more?: never true In the past 12 mos, the food you bought just didn't last and you didn't have money to buy more?: never true Smoking Status: Never smoker Do you use any of these nicotine containing products: None Second hand tobacco smoke exposure: No How often do you have a drink containing alcohol: never How often do you have six or more drinks on one occasion: Never AUDIT-C Alcohol total score: 0 Non-prescribed substance use: denies use How often does anyone, including family, friends and others, physically hurt you : never How often does anyone, including family, friends and others, insult or talk down to you: never How often does anyone, including family, friends and others, threaten you with harm: never How often does anyone, including family, friends and others, scream or curse at you: never service: No Exam Const: Vital Signs, click to edit/add: Vital Signs - 24 hr 01/19/25 07:10 Temperature 98.3 F Pulse Rate [Pulse Oximeter] 100 Respiratory Rate 20 Blood Pressure [Ri ght Upper Arm] 106/73 Pulse Oximetry 99 Oxygen Delivery Me thod Room Air Documenting provider has reviewed patient's vital signs: yes Common normals: no apparent distress General appearance: cooperative, comfortable and well kempt HENMT: Common normals: normocephalic, moist oral mucous membranes and oropharynx normal Head and scalp: normocephalic Face and sinus: normal facial exam Mouth: oral and palatal mucosa normal Throat: posterior oropharynx normal Eye: Common normals: conjunctivae normal General eye: normal appearance of both eyes Conjunctiva: conjunctiva(e) normal Neck & C-Spine: Common normals: full ROM and no lymphadenopathy Resp: Common normals: normal respiratory effort and no use of accessory muscl es Effort & inspection: able to speak in complete sentences Cardio: Common normals: regular rate, regular rhythm, S1 normal heart sound and S2 normal heart sound Rate: regular rate Rhythm: regular rhythm Heart sounds: S1 normal and S2 normal GI: Common normals: Normal to inspection, nondistended, normoactive bowel sounds present, soft to palpation, non-tender, no hepatosplenomegaly and no masses Palpation: soft and no hepatosplenomegaly Other: Fundal height palpable just above pelvic brim, consistent with gestation. Prior Pfannenstiel incision noted Extremity: Common normals: normal to inspection, normal capillary refill and no pedal edema Psych: Common normals: speech normal Appearance: well kempt Attitude: engaged Activity/motor behavior: appropriate eye contact Speech: normal speech Mood and affect: euthymic mood Insight: insight good Judgement: judgment good Skin: Common normals: no rashes or lesions noted General skin exam: no rashes or lesions noted Course Course ED Course: 19-year-old female presenting at 13 weeks gestation with pelvic cramping and vaginal bleeding, prior subchorionic hemorrhage noted in this . Differential diagnosis including miscarriage, subchorionic hemorrhage, other reasons for hemorrhage, infection. Blood type known to be O positive, does not require RhoGAM. Unlikely to benefit from hCG levels at this later stage of . Will go straight to pelvic ultrasound. At this time, she is not demonstrating any signs of tachycardia, hypotension or other signs of severe hemorrhage. Will monitor closely and await ultrasound findings. Consider OB consult if needed. Reevaluation(s) Reevaluation #1: Counseled patient on ultrasound findings, reassuring. Baby is growing well. Grossly normal amount of amniotic fluid. Overall reassuring. Bleeding is not having or severe and actually has ceased again now per patient. She has a follow-up with her obstetrical provider tomorrow. I recommended that she keep this appointment. We reviewed the alarm symptoms such as severe heavy bleeding, high fevers that would warrant ED re-evaluation. She verbalizes understanding and agreement of this. Written instructions provided. Vital Signs Vital signs: Initial Vital Signs Temperature 98.3 F 01/19/25 07:10 Temperature Source Oral 01/19/25 07:10 Pulse Rate 100 01/19/25 07:10 Respiratory Rate 20 01/19/25 07:10 Blood Pressure 106/73 01/19/25 07:10 Blood Pressure Mean 84 01/19/25 07:10 Pulse Oximetry 99 01/19/25 07:10 Oxygen Delivery Method Room Air 01/19/25 07:10 Vital Signs Temperature 98.3 F 01/19/25 07:10 Pulse Rate 100 01/19/25 07:10 Respiratory Rate 20 01/19/25 07:10 Blood Pressure 106/73 01/19/25 07:10 Pulse Oximetry 99 01/19/25 07:10 Oxygen Delivery Method Room Air 01/19/25 07:10 Temperature 98.3 F 01/19/25 07:10 Pulse Rate 100 01/19/25 07:10 Respiratory Rate 20 01/19/25 07:10 Blood Pressure 106/73 01/19/25 07:10 Pulse Oximetry 99 01/19/25 07:10 Oxygen Delivery Method Room Air 01/19/25 07:10 Medical Decision Making Imaging Data ultrasound: Attestation: I have reviewed the pertinent imaging results. My impression: Growing Myers IUP with healthy heart rate, grossly normal appearing amount of amniotic fluid. No obvious source of bleeding. Radiologist's impression: Impression: 1. Single live intrauterine gestation at 13 weeks and 4 days. The age is concordant with the age predicted by prior ultrasound scan. 2. heart rate is 163 beats per minute which is normal. 3. There is no visible cause for abnormal bleeding 4. Anatomy was performed only to measure the age. Formal anatomic survey is generally recommended at near 20 weeks Dictated by Keyon Joseph MD @ 01/19/2025 8:29:43 AM Discharge Plan Discharge Clinical Impression: Vaginal bleeding affecting early Patient Disposition: Home w/ Parent or Adult Condition: Stable Instructions: Subchorionic Hemorrhage (ED) Additional Instructions: As we discussed, I am uncertain of the reason for your bleeding. This could be the subchorionic hemorrhage again or something else altogether. Thankfully, the bleeding does not seem severe or life-threatening to you at this time. More thankfully is that the baby seems to be growing very well, has a good amount of amniotic fluid and everything else appears healthy. Keep your appointment as planned tomorrow with your Ob provider. Bring this paperwork with you so that they know that you were seen and what we discovered. Please come back to the emergency room if you have severe bleeding, soaking through a pad per hour for more than an hour. As we discussed, you can treat your nasal congestion with [id number] Flonase nasal steroid spray and 1 Benadryl at bedtime if the congestion is bothersome. Cough syrups are not really considered dangerous they just are not terribly effective. It is also okay to use Tylenol for the cramping. Activity Level: Activity as Tolerated Discharge Diet: Regular Prescriptions: No Action acetaminophen 500 mg Tablet 1,000 mg PO Q6H PRN (Reason: Pain) Qty: 30 0RF Follow Up/Referrals: Lauren Orellana DO [Primary Care Provider, Family Practice] Stand Alone Forms: [facility] Info Instructions
== END 2025-01-19 08:46 | disposition home or self-care (01) ==
PROVIDERS: Emergency Provider Family Medicine; PCP Family Medicine
DX: O20.9 Hemorrhage in early pregnancy, unspecified (principal); Z98.891 History of uterine scar from previous surgery; Z3A.13 13 weeks gestation of pregnancy
CPT/HCPCS: 76801; 99283; 99284

== ENCOUNTER 2025-02-16 11:07 | Emergency (ER) | payer BC, SELFPAY ==
[2025-02-16 11:32] VITALS: BP 99/62; PULSE 85; RESP 16; TEMP 36.4; O2SAT 98; BMI 22.4
--- NOTE | 2025-02-16 11:40 | CRLHL7_ITS ---
For Patients: As a result of the Century Cures Act, medical imaging exams and procedure reports are released immediately into your electronic medical record. You may view this report before your referring provider. If you have questions, please contact your health care provider. INDICATION: No movement since 129. (Sic) COMPARISON: 01/19/2025 TECHNIQUE: Grayscale pelvic ultrasound via a transabdominal approach. FINDINGS: number: 1 Position: Cephalic. Placental Position: Anterior. Amniotic fluid: DVP 4.0cm. heart rate: 142bpm. Uterus: No significant uterine findings. The cervix is closed and measures approximately 3.8 cm in length. Right ovary: Unseen. Left ovary: Unseen. IMPRESSION: Myers viable intrauterine . heart rate is 142 beats per minute. Dictated by Mateo Heredia MD @ 02/16/2025 12:17:37 PM (Electronically Signed)
--- NOTE | 2025-02-16 12:07 | ED.PREGNANCY ---
HPI - General Date Seen: 02/16/25 Chief complaint: OB/Uterine Contractions Stated complaint: No ongoing fetus movement 18w Time Seen by Provider: 02/16/25 12:07 Source: patient and RN notes reviewed Mode of arrival: ambulatory Limitations: no limitations History of Present Illness HPI Narrative: Patient is a very pleasant 19-year-old with history of 1 miscarriage who comes to the emergency room for evaluation of not feeling movement. Patient noted about 130 this morning she had not been feeling baby move very much. She had not been experiencing any vaginal bleeding or unusual discharge and has no urinary symptoms. She notes lower abdominal cramping that has been coming and going for many weeks. This is not something that is new per patient report. She has not had fever chills cough cold congestion and no trauma. Patient denies any spotting. Did have subchorionic hemorrhage according to previous notes in no early January. There was some spotting at that time. Related Data Home Medications ?Medication ?Instructions ?Recorded ?Confirmed vitamins with calcium 1 tab PO DAILY 02/16/25 02/16/25 no.72-iron 27 mg-folic acid 1 mg tablet ( Vitamins Plus Low Iron) Previous Rx's ?Medication ?Instructions ?Recorded acetaminophen 500 mg tablet 1,000 mg (2 x 500 mg) PO Q6H PRN 06/15/24 Pain #30 tabs Allergies Allergy/AdvReac Type Severity Reaction Status Date / Time No Known Drug Allergies Allergy Verified 02/16/25 11:40 Review of Systems Status of ROS: Reports: 6 or more systems reviewed and unremarkable except as noted in History and below PFSH [facility] Medical History Anemia ?D64.9 - Anemia, unspecified (ICD-10) hemorrhage ?O72.1 - Other immediate hemorrhage (ICD-10) Atypical chest pain ?R07.89 - Other chest pain (ICD-10) Syncope ?R55 - Syncope and collapse (ICD-10) Varicella ?B01.9 - Varicella without complication (ICD-10) Surgical History Status post primary low transverse section (06/12/24) ?Z98.891 - History of uterine scar from previous surgery (ICD-10) History of esophagogastroduodenoscopy (EGD) ?Z98.890 - Other specified postprocedural states (ICD-10) Social History What is your current living situation?: I presently have a place to live Problems where you live: no known problems In the past 12 months, utilities in danger of being shut off: no In past 12 months, lack of transportation kept you from medical appts, meetings, work, or getting things needed for daily living: no In the past 12 mos, have been you worried that your food would run out before you had money to buy more?: never true In the past 12 mos, the food you bought just didn't last and you didn't have money to buy more?: never true Smoking Status: Never smoker Do you use any of these nicotine containing products: None Second hand tobacco smoke exposure: No How often do you have a drink containing alcohol: never How often do you have six or more drinks on one occasion: Never AUDIT-C Alcohol total score: 0 Non-prescribed substance use: denies use How often does anyone, including family, friends and others, physically hurt you: never How often does anyone, including family, friends and others, insult or talk down to you: never How often does anyone, including family, friends and others, threaten you with harm: never How often does anyone, including family, friends and others, scream or curse at you: never service: No Exam Narrative: Exam Narrative: Alert and oriented. Very pleasant young woman in no acute distress. Face symmetrical mentation and speech normal. Heart with regular rate and rhythm and lungs are clear. Abdomen is soft nontender. Gravid. Lower extremities without edema. Moving extremities without difficulty. ' Const: Vital Signs, click to edit/add: Vital Signs - 24 hr 02/16/25 11:32 Temperature 97.6 F Pulse Rate [Pulse Oximeter] 85 Respiratory Rate 16 Blood Pressure [Ri ght Upper Arm] 99/62 Pulse Oximetry 98 Oxygen Delivery Me thod Room Air Documenting provider has reviewed patient's vital signs: yes Course Course ED Course: Differential diagnosis includes but is not limited to demise, placenta previa, anxiety. An ultrasound was done prior to patient being able to be in a room. This ultrasound was very reassuring with movement, anterior placenta. Vital Signs Vital signs: Initial Vital Signs Temperature 97.6 F 02/16/25 11:32 Temperature Source Temporal Artery Scan 02/16/25 11:32 Pulse Rate 85 02/16/25 11:32 Respiratory Rate 16 02/16/25 11:32 Blood Pressure 99/62 02/16/25 11:32 Blood Pressure Mean 74 02/16/25 11:32 Blood Pressure Position Sitting 02/16/25 11:32 Pulse Oximetry 98 02/16/25 11:32 Oxygen Delivery Method Room Air 02/16/25 11:32 Vital Signs Temperature 97.6 F 02/16/25 11:32 Pulse Rate 85 02/16/25 11:32 Respiratory Rate 16 02/16/25 11:32 Blood Pressure 99/62 02/16/25 11:32 Pulse Oximetry 98 02/16/25 11:32 Oxygen Delivery Method Room Air 02/16/25 11:32 Temperature 97.6 F 02/16/25 11:32 Pulse Rate 85 02/16/25 11:32 Respiratory Rate 16 02/16/25 11:32 Blood Pressure 99/62 02/16/25 11:32 Pulse Oximetry 98 02/16/25 11:32 Oxygen Delivery Method Room Air 02/16/25 11:32 MDM - OB/Uterine Contractions MDM Narrative Medical decision making narrative: 1. Feared condition not found. Patient much happier now that she knows ultrasound looks okay. Reassurance at this time. 2. Disposition-home at this time. Will check urine sample here but allow patient to depart. If positive I will give her a call. Otherwise I did state that she should follow up Jared Wilson in the [facility]. She is agreeable to that. Will also return if she has any spotting, worsening cramping, vomiting or fever. Addendum: Urinalysis without evidence of UTI. Medical Records Attestation: I reviewed the patient's medical records. Lab Data Attestation: I reviewed the patient's lab results. Labs: Lab Results 02/16/25 Range/Units 12:21 Urine Color Yellow (Yellow) Urine Appearance Clear (Clear) Urine pH 8.0 (5.0-8.5) Ur Specific [place] 1.015 (1.000-1.030) Urine Protein Negative (Negative) Urine Glucose (UA) Negative (Negative) Urine Ketones Negative (Negative) Urine Blood Negative (Negative) Urine Nitrite Negative (Negative) Urine Bilirubin Negative (Negative) Urine Urobilinogen 0.2 (0.2-1.0) Ur Leukocyte Esterase Negative (Negative) Urine RBC 0-2 (0-2) Urine WBC 2-5 (0-5) Ur Squamous Epith Cells Few (None-Few) Urine Bacteria Moderate A (None) Imaging Data US - abdomen: Attestation: I have reviewed the pertinent imaging results. Radiologist's impression: number: 1 Position: Cephalic. Placental Position: Anterior. Amniotic fluid: DVP 4.0cm. heart rate: 142bpm. Uterus: No significant uterine findings. The cervix is closed and measures approximately 3.8 cm in length. Right ovary: Unseen. Left ovary: Unseen. IMPRESSION: Myers viable intrauterine . heart rate is 142 beats per minute. Discharge Plan Discharge Clinical Impression: Condition not found Patient Disposition: Home, Self-Care Condition: Improved Additional Instructions: Ultrasound is normal. Please follow-up with your primary MD for recheck. Return to the ER as needed. I will call you if urine sample that you left is abnormal. Prescriptions: No Action acetaminophen 500 mg Tablet 1,000 mg PO Q6H PRN (Reason: Pain) Qty: 30 0RF Vitamin Plus Low Iron 27 mg iron- 1 mg tablet 1 tab PO DAILY Follow Up/Referrals: Lauren Orellana DO [Primary Care Provider, Family Practice] Stand Alone Forms: [employer] Info Instructions
[2025-02-16 12:28] LABS: Appearance Urine Clear (Clear)
== END 2025-02-16 12:58 | disposition home or self-care (01) ==
PROVIDERS: Emergency Provider Family Medicine; PCP Family Medicine
DX: Z71.1 Person with feared health complaint in whom no diagnosis is made (principal); Z3A.17 17 weeks gestation of pregnancy
CPT/HCPCS: 76815; 81001; 87086; 99283; 99284

== ENCOUNTER 2025-03-07 06:25 | Outpatient (CLI) | payer BC, SELFPAY ==
--- NOTE | 2025-03-07 06:28 | CRLHL7_ITS ---
For Patients: As a result of the Century Cures Act, medical imaging exams and procedure reports are released immediately into your electronic medical record. You may view this report before your referring provider. If you have questions, please contact your health care provider. INDICATION: Abdominal pain, contraction, evaluate cervical length TECHNIQUE: Ultrasound OB pelvis transabdominal. Limited exam to evaluate cervical length. COMPARISON: Ultrasound Ob February 16, 2025 FINDINGS: Single living intrauterine gestation with a heart rate of 149 beats per minute. Cervix measures 3.0- 3.2 centimeter, which appears closed. No abnormal funneling or cervical dilatation. Amniotic fluid volume subjectively appears normal. IMPRESSION.: Cervical length measures 3.0-3.2 centimeter. Dictated by Ritika Randolph MD @ 03/07/2025 10:06:25 AM (Electronically Signed)
[2025-03-07 06:36] VITALS: PULSE 89; O2SAT 99
[2025-03-07 06:38] VITALS: BMI 23.6
--- NOTE | 2025-03-07 07:20 | CRLHL7_ITS ---
For Patients: As a result of the Century Cures Act, medical imaging exams and procedure reports are released immediately into your electronic medical record. You may view this report before your referring provider. If you have questions, please contact your health care provider. INDICATION: Abdominal pain TECHNIQUE: Ultrasound abdomen complete. Sonographic images of the entire abdomen were obtained using rutherford-scale and color Doppler. COMPARISON: None. FINDINGS: Liver: Normal in size and echotexture. No masses. No intrahepatic biliary dilatation. Gallbladder: There is a shadowing calculus within the gallbladder lumen. Normal wall thickness. No pericholecystic fluid. Common bile duct: 1.3 mm. Pancreas: Normal in size and appearance. Spleen: Normal in size and appearance. Kidneys: Both kidneys are normal in size. Normal echotexture and cortex. No masses, stones, or hydronephrosis. Vasculature: Proximal abdominal aorta and IVC are normal in caliber. Appendix is not visualized. IMPRESSION: Cholelithiasis. Otherwise, unremarkable abdominal sonogram. Dictated by Adan Merida MD @ 03/07/2025 10:05:58 AM (Electronically Signed)
[2025-03-07 07:21] LABS: Appearance Urine Clear (Clear)
--- NOTE | 2025-03-07 07:38 | P.OBLDTN_ITS ---
OB - Triage/Final Diagnosis Visit Information Time Seen by Provider: 06:45 Date Seen: 03/07/25 Date of evaluation: 03/07/25 Narrative: The patient is a 19 year old 3 para 1 at 20 weeks gestation by 5wk US, who presents with abdominal pain/cramping and leakage of fluid. Patient awoke this morning with lower abdominal cramping at approx 3AM. It was at first duller in nature, then developed into sharp lower abdominal pain with left flank pain that seemed to come and go, similar to labor pains. She felt that the sharp pain would last for about 3 minutes and occur every 5-7 minutes. She does have continuous pain in her lower abdomen that is always there. She did get up to urinate and had some ongoing trickling of fluids after urination despite feeling like she emptied her bladder. Has had abdominal pain in the past, might be related to spicy or fatty foods. She has had uterine cramping throughout this with recent vaginal bleeding 3 wks ago, she had a reassuring work up. The bleeding was thought to be due to a subchorionic hemorrhage. She did have an ultrasound that showed an anterior placenta. She feels flushed this morning, but denies fevers. She denies N/V. She has been feeling generally unwell over the holidays. She denies dysuria, but notes increased frequency and urgency. She denies constipation/diarrhea. Her is complicated by teen , short interval with her last resulting in for arrest of decent. Comments/Additional reasons for admission: Differential diagnosis is broad: labor, gallbladder disease, appendicitis, UTI, pyelonephritis, nephrolithiasis, vaginitis, among others. Work up includes UA, amnisure, wet prep, CBC, CMP, abdominal US to assess gallbladder, appendix, and left kidney/ureter, pelvic US to assess cervical length. Evaluation Cervical dilation (cm): 0 Laboratory results: Laboratory Tests 03/07/25 Range/Units 06:51 Urine Color Pending Urine Appearance Pending Urine pH Pending Ur Specific [place] Pending Urine Protein Pending Urine Glucose (UA) Pending Urine Ketones Pending Urine Blood Pending Urine Nitrite Pending Urine Bilirubin Pending Urine Urobilinogen Pending Ur Leukocyte Esterase Pending Vital signs: Vital Signs - 24 hr 12/27/25 06:36 Pulse Oximetry 99 Comments: Generally well appearing, no acute distress, appears comfortable. Unlabored breathing. Mucus membranes moist. Gravid abdomen, but otherwise soft. No uterine tenderness. RUQ tenderness at [place], RLQ tenderness at McBurney's, negative rosvig, negative rebound, negative guarding, suprapubic tenderness. Vulva normal. Vaginal canal with white-yellow, chunky discharge, cervical os closed, no leakage of fluid or pooling on speculum. Does have cervical ectropion that are benign appearing. No bleeding from os. Dop tones reassuring at 140-150. No contractions noted on toco. Fetus (Single) Heart Rate Baseline: 145 Final Diagnosis (1) Abdominal pain affecting : Status: Resolved (2) : Status: Acute (3) Status post primary low transverse section: Status: Acute Problem details: Girl, Tanya. Apgars 9/9. 7#7oz (4) Acute left flank pain: Status: Acute
[2025-03-07 07:45] VITALS: TEMP 36.6
[2025-03-07 07:57] LABS: Amnisure Rom* Negative
[2025-03-07 08:22] LABS: Trichomonas No Trichomonas Seen (None Seen)
[2025-03-07 08:43] LABS: Hematocrit* 34.1 % (33.0-51.0); Hemoglobin* 10.9 gm/dL (12.0-16.0); Immature Granulocytes Pct Auto 0.2 %; Lymphocytes Absolute Auto 2.30 K/uL (0.90-2.90); Mean Corpuscular HGB Conc 32 gm/dL (32-36); Mean Corpuscular Hemoglobin 30 pg (26-34); Mean Corpuscular Volume 93 fL (80-100); RDW Coefficient of Variation % 13.0 % (11.5-15.5); Red Blood Count* 3.68 m/uL (4.00-5.20); White Blood Count* 11.59 K/uL (4.50-11.00)
[2025-03-07 08:46] LABS: Immature Granulocytes Abs Auto 0.00 K/uL (0.00-0.30); Slide Review Reflex No
[2025-03-07 08:54] LABS: Chloride* 103 mmol/L (96-114)
[2025-03-07 08:55] LABS: Albumin* 3.9 g/dL (3.3-5.0); Potassium* 4.0 mmol/L (3.6-5.1); Sodium* 132 mmol/L (135-149)
[2025-03-07 08:57] LABS: Alanine Aminotransferase* 12 U/L (4-35); Aspartate Amino Transferase* 16 U/L (12-35); Blood Urea Nitrogen* 10 mg/dL (5-24); Creatinine* 0.4 mg/dL (0.6-1.2); Est. Creatinine Clearance* 170.70; Estimated Glomerular Filt Rate 146 ml/min
[2025-03-07 08:58] LABS: Alkaline Phosphatase* 93 U/L (40-150); Anion Gap 7 mEq/L (7-15); Bilirubin Total* 0.2 mg/dL (0.1-1.5); Calcium* 9.0 mg/dL (8.7-10.8); Carbon Dioxide* 22 mmol/L (20-32); Glucose* 90 mg/dL (60-115); Total Protein* 6.8 g/dL (6.0-8.3)
--- NOTE | 2025-03-07 10:10 | PM.OBLDTN ---
OB - Triage/Final Diagnosis Visit Information Time Seen by Provider: 06:45 Date Seen: 03/07/25 Date of evaluation: 03/07/25 Narrative: The patient is a 19 year old 3 para 1 at 20 weeks gestation by 5wk US, who presents with abdominal pain/cramping and leakage of fluid. Patient awoke this morning with lower abdominal cramping at approx 3AM. It was at first duller in nature, then developed into sharp lower abdominal pain with left flank pain that seemed to come and go, similar to labor pains. She felt that the sharp pain would last for about 3 minutes and occur every 5-7 minutes. She does have continuous pain in her lower abdomen that is always there. She did get up to urinate and had some ongoing trickling of fluids after urination despite feeling like she emptied her bladder. Has had abdominal pain in the past, might be related to spicy or fatty foods. She has had uterine cramping throughout this with recent vaginal bleeding 3 wks ago, she had a reassuring work up. The bleeding was thought to be due to a subchorionic hemorrhage. She did have an ultrasound that showed an anterior placenta. She feels flushed this morning, but denies fevers. She denies N/V. She has been feeling generally unwell over the holidays. She denies dysuria, but notes increased frequency and urgency. She denies constipation/diarrhea. Her is complicated by teen , short interval with her last resulting in for arrest of decent. She notes possible biliary colic prior to . Evaluation Cervical dilation (cm): 0 Laboratory results: Laboratory Tests 03/07/25 03/07/25 03/07/25 Range/Units 08:35 07:40 06:51 WBC 11.59 H (4.50-11.00) K/uL RBC 3.68 L (4.00-5.20) m/uL Hgb 10.9 L (12.0-16.0) gm/dL Hct 34.1 (33.0-51.0) % MCV 93 (80-100) fL MCH 30 (26-34) pg MCHC 32 (32-36) gm/dL RDW Coeff of Kasi 13.0 (11.5-15.5) % Plt Count 281 (140-440) K/uL Neut % (Auto) 73.9 H (42.0-72.0) % Lymph % (Auto) 19.8 L (20-44) % [facility] % (Auto) 5.5 (0.0-11.0) % Eos % (Auto) 0.4 (0.0-7.0) % Baso % (Auto) 0.2 (0.0-3.0) % Neut # (Auto) 8.60 H (1.7-7.0) K/uL Lymph # (Auto) 2.30 (0.90-2.90) K/uL [facility] # (Auto) 0.60 (0.00-0.90) K/UL Eos # (Auto) 0.00 (0.00-0.50) K/uL Baso # (Auto) 0.00 (0.00-0.30) K/uL Abs Immat Gran (auto) 0.00 (0.00-0.30) K/uL Imm/Tot Granulo (auto) 0.2 % Sodium 132 L (135-149) mmol/L Potassium 4.0 (3.6-5.1) mmol/L Chloride 103 (96-114) mmol/L Carbon Dioxide 22 (20-32) mmol/L Anion Gap 7 (7-15) mEq/L BUN 10 (5-24) mg/dL Creatinine 0.4 L (0.6-1.2) mg/dL Estimated Creat Clear 170.70 Estimated GFR 146 ml/min Glucose 90 (60-115) mg/dL Calcium 9.0 (8.7-10.8) mg/dL Total Bilirubin 0.2 (0.1-1.5) mg/dL AST 16 (12-35) U/L ALT 12 (4-35) U/L Alkaline Phosphatase 93 (40-150) U/L Total Protein 6.8 (6.0-8.3) g/dL Albumin 3.9 (3.3-5.0) g/dL Urine Color Yellow (Yellow) Urine Appearance Clear (Clear) Urine pH 7.0 (5.0-8.5) Ur Specific Center 1.025 (1.000-1.030) Urine Protein Negative (Negative) Urine Glucose (UA) Negative (Negative) Urine Ketones Negative (Negative) Urine Blood Negative (Negative) Urine Nitrite Negative (Negative) Urine Bilirubin Negative (Negative) Urine Urobilinogen 0.2 (0.2-1.0) Ur Leukocyte Esterase Negative (Negative) Membrane Rupture Negative Vaginal Trichomonas No Trichomonas Seen (None Seen) Vaginal Yeast No Yeast Seen (None Seen) Vaginal Clue Cells No Clue Cells Seen (None Seen) Vital signs: Vital Signs - 24 hr 03/07/25 06:36 03/07/25 07:45 Temperature 97.8 F Pulse Oximetry 99 Comments: Generally well appearing, no acute distress, appears comfortable. Unlabored breathing. Mucus membranes moist. Gravid abdomen, but otherwise soft. No uterine tenderness. RUQ tenderness at S[place], RLQ tenderness at McBurney's, negative rosvig, negative rebound, negative guarding, suprapubic tenderness. Vulva normal. Vaginal canal with white-yellow, chunky discharge, cervical os closed, no leakage of fluid or pooling on speculum. Does have cervical ectropion that are benign appearing. No bleeding from os. Dop tones reassuring at 140-150. No contractions noted on toco. Fetus (Single) Heart Rate Baseline: 145 Final Diagnosis (1) Biliary colic: Status: Acute Problem details: Suspect biliary colic as etiology of intermittent sharp abdominal pain. Abdominal ultrasound with cholelithiasis. Recommended lifestyle change and avoidance of triggering foods. Close follow up in clinic, consider surgical management if not improved with conservative management. (2) Abdominal pain affecting : Status: Resolved Problem details: Patient with multiple visits concerning abdominal pain and cramping with poor localization of symptoms on history. Did perform extensive work up that was reassuring. UA not consistent with UTI. CMP wnl. CBC with mild leukocytosis and anemia but stable and expected in . Wet prep without evidence of vaginitis. US not able to visualize appendicitis, however low suspicion given overall clinical picture. US of left flank without evidence of nephrolithiasis. Does have history of constipation, but denies this today. Do wonder if there is a component of abdominal pain/flank pain that is consistent with MSK disease in . Encouraged tylenol prn. Represent to triage if recurrent sharp pains. Close follow up with primary on 03/16/25. (3) Acute left flank pain: Status: Acute (4) : Status: Acute Problem details: Currently 20wks , complicated by teen and short interval with in June 2024. (5) Status post primary low transverse section: Status: Acute Problem details: Girl, Tanya. Apgars 9/9. 7#7oz Total Time Spent Total Time Spent: 1 hour
== END 2025-03-07 09:25 | disposition home or self-care (01) ==
LOC: OB OUT 06:26 → OB 06:26
PROVIDERS: PCP Family Medicine; Visit Provider Student in an Organized Health Care Education/Training Program
DX: O26.899 Other specified pregnancy related conditions, unspecified trimester (principal); O99.619 Diseases of the digestive system complicating pregnancy, unspecified trimester; R10.9 Unspecified abdominal pain
CPT/HCPCS: 36415; 76700; 76817; 80053; 81003; 84112; 85025; 87210; G0463